=== PATIENT | male | born 1960 | race American Indian/Alaskan Native ===

== ENCOUNTER 2021-06-06 11:31 | Outpatient (CLI) | payer OTHER ==
--- NOTE | 2021-06-06 13:09 | XRay Report ---
LUMBOSACRAL SPINE 3 VIEWS INDICATION: BACK PAIN. COMPARISON: None. IMPRESSION: Normal alignment. 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 L4-5 appears to be the most affected level. No acute osseous or soft tissue abnorm ality. Signer Name: Miguel Hardy Jr, MD Signed: 06/06/2021 1:05 PM Workstation Name: [id number]
== END 2021-06-06 11:32 | disposition home or self-care (01) ==
LOC: XRAY 11:31
PROVIDERS: ATTEND Internal Medicine
DX: M47.816 Spondylosis without myelopathy or radiculopathy, lumbar region (principal)
CPT/HCPCS: 72100